=== PATIENT | male | born 1940 | race Hispanic/Latino ===

== ENCOUNTER 2017-01-15 11:03 | Day surgery (SDC) | payer MEDICARE ==
[~2017-01-15 11:03] MED LIST: AK-Dilate OS ONE; IOPIDINE OS ONE; MYDRIACYL OS ONE
[2017-01-15 11:43] VITALS: BP 148/78
[2017-01-15] MEDS ORDERED: IOPIDINE ONE (11:58)
[2017-01-15] MEDS ORDERED: AK-Dilate ONE (11:59)
[2017-01-15] MEDS ORDERED: MYDRIACYL ONE (12:00)
[2017-01-15] MEDS ORDERED: IOPIDINE OS ONE ×2 (12:06→12:30)
[2017-01-15] MEDS ORDERED: MYDRIACYL OS ONE (12:06)
[2017-01-15] MEDS ORDERED: AK-Dilate OS ONE (12:06)
== END 2017-01-15 12:38 | disposition home or self-care (01) ==
LOC: OR 11:03
PROVIDERS: ATTEND Ophthalmology
DX: H26.492 Other secondary cataract, left eye (principal); Z79.899 Other long term (current) drug therapy
CPT/HCPCS: 82962